=== PATIENT | male | born 1950 | race Caucasian/White ===

== ENCOUNTER → 2017-12-11 13:17 | Outpatient (CLI) | payer MEDICARE, OTHER, SELFPAY ==
--- NOTE | 2017-12-11 | DI.MRI.S_ITS ---
PROCEDURE: MR KNEE RT WO CON INDICATIONS: 66-year-old male with chronic left knee pain after June 2016 injury. TECHNIQUE: Noncontrast sagittal PD fast spin echo and T2 fast spin echo with fat saturation, sagittal 3-D FLASH with fat saturation; coronal T1 spin echo and PD fast spin echo with fat saturation, and axial PD fast spin echo with fat saturation through the knee. COMPARISON: [facility], CR, XR KNEE ARTHRITIC SERIES BI, 12/10/2017, 8:05. [facility], CR, XR KNEE ARTHRITIC SERIES RT, 08/19/2016, 10:12. FINDINGS: Image quality: Excellent. Menisci: There is irregular truncation and signal involving the medial meniscal body and posterior horn, consistent with complex tear. There is amorphous signal within the lateral meniscal body on coronal image 22 as well. The meniscal root ligaments appear intact. Cruciate ligaments: The anterior and posterior cruciate ligaments appear intact. Medial structures: The medial collateral ligament appears intact. The posterior oblique ligament, semimembranosus tendon insertions, oblique popliteal ligament, and meniscocapsular junction appear intact. Visualized portions of the pes anserinus tendons appear normal. No abnormal bursal fluid. Lateral structures: The lateral collateral ligament, long and short heads of the biceps femoris tendon appear intact. The popliteus tendon appears normal; the popliteofibular ligament appears intact. The posterosuperior and anteroinferior popliteomeniscal fascicles appear intact. The arcuate ligament appears intact, just anterior to the lateral inferior geniculate artery. Iliotibial band appears normal. Anterior structures: The quadriceps and patellar tendons appear intact. Axial images demonstrate mild lateral patellar subluxation. The patellar tendon insertion is centered 1.5 cm lateral to the trochlear sulcus. No femoral trochlear dysplasia or ventral trochlear prominence. No edema in the infrapatellar fat pad. Bones and cartilage: No bone marrow contusions or fractures. There is high grade partial thickness cartilage thinning involving the weightbearing portion of the medial femoral condyle. The lateral femorotibial compartment cartilage demonstrates normal thickness and signal. There is regional full-thickness cartilage loss involving the patellar apex and lateral patellar facet, as well as the lateral trochlear facet. Joint space: There is small knee joint effusion. There is moderate unruptured Torres's cyst, measuring up to 6.3 cm craniocaudal dimensions. No intra-articular bodies. IMPRESSION: 1. Complex nondisplaced tear of the medial meniscal body and posterior horn. 2. Possible complex tear of the lateral meniscal body. 3. 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 4. High-grade partial-thickness degenerative chondrosis of the medial femorotibial compartment. 5. Moderate unruptured Torres's cyst. Dictated by: Shawn Rodriguez M.D. on 12/11/2017 at 15:51 Approved by: Shawn Rodriguez M.D. on 12/11/2017 at 16:05
== END ==
PROVIDERS: PCP Family Medicine; Visit Provider Orthopaedic Surgery
DX: M25.562 Pain in left knee (principal); S83.242A Other tear of medial meniscus, current injury, left knee, initial encounter; M22.42 Chondromalacia patellae, left knee; M71.22 Synovial cyst of popliteal space [Baker], left knee
CPT/HCPCS: 73721

== ENCOUNTER → 2020-07-29 08:49 | Outpatient (CLI) | payer MEDICARE, OTHER, SELFPAY ==
[2020-07-29 10:26] LABS: BUN Creatinine Ratio 19.6 (6-22); Blood Urea Nitrogen 20 mg/dL (9-20); Carbon Dioxide 31 mmol/L (22-32); Chloride 103 mmol/L (98-107); Estimated Glomerular Filt Rate > 60.0 mL/min (>60); Glucose 108 mg/dL (80-110); HEMOLYSIS < 15 (0-50); Potassium 4.8 mmol/L (3.4-5.1); Sodium 138 mmol/L (137-145)
== END ==
PROVIDERS: PCP Family Medicine
DX: E87.5 Hyperkalemia (principal)
CPT/HCPCS: 36415; 80048